=== PATIENT | female | born 1965 | race Caucasian/White ===

== ENCOUNTER → 2022-09-09 | Outpatient (CLI) | payer BC ==
--- NOTE | 2022-09-09 14:54 | CT ---
EXAMINATION TYPE: CT left knee - [facility] Protocol DATE OF EXAM: 09/09/2022 COMPARISON: None HISTORY: LT knee Gorge protocol CT DLP: 2169 mGycm Axial , sagittal and coronal images are obtained. Findings: There is bilateral moderate hip arthropathy. Mild to moderate concentric narrowing of the hip joint. There is near-complete loss of joint space involving the medial compartment of the left knee. There i s moderate to severe hypertrophic change and narrowing of the patellofemoral joint. No erosive change s. Ankle mortise is symmetric. IMPRESSION: 1. Severe osteoarthritis left knee.
== END | disposition home or self-care (01) ==
LOC: RADCTMAIN 13:21
PROVIDERS: ATTEND Orthopaedic Surgery
DX: M17.12 Unilateral primary osteoarthritis, left knee (principal); Z68.41 Body mass index [BMI] 40.0-44.9, adult

== ENCOUNTER → 2022-09-25 | Outpatient (CLI) | payer OTHER ==
--- NOTE | 2022-09-26 07:43 | CT ---
EXAMINATION TYPE: CT left knee - [facility] Protocol CT DLP: 1945 mGycm, Automated exposure control for dose reduction was used. DATE OF EXAM: 09/25/2022 4:13 PM COMPARISON: CT left knee 09/09/2022 CLINICAL INDICATION:Female, 57 years old with history of M25.562 PAIN IN LEFT KNEE; PH, Pre-surgical planning for left knee. TECHNIQUE: Axial images were obtained of the pelvis, both hips, left knee, and both ankles without th e use of IV contrast. Additional coronal and sagittal reformatted images and soft tissue and bone wi ndow were obtained for review. [facility] protocol. FINDINGS: There is bilateral mild hip arthropathy. Mild concentric narrowing of the hip joint. Without signific ant spurring. There is near-complete loss of joint space involving the medial compartment of the left knee. There i s moderate to severe hypertrophic change and narrowing of the patellofemoral joint. No erosive change s. Trace suprapatellar joint effusion. Partial visualization of arthritic changes of the right knee. Ankle mortise is symmetric. Right plantar calcaneal spur. Distal colonic diverticulosis without evidence for acute diverticulitis. Post hysterectomy changes. IMPRESSION: Severe osteoarthritis left knee redemonstrated.
== END | disposition home or self-care (01) ==
LOC: RADCTMAIN 15:26
PROVIDERS: ATTEND Orthopaedic Surgery
DX: Z01.818 Encounter for other preprocedural examination (principal); M17.12 Unilateral primary osteoarthritis, left knee

== ENCOUNTER → 2022-09-25 | Outpatient (CLI) | payer BC ==
[2022-09-25 17:06] LABS: Partial Thromboplastin Time 25.3 sec (22.0-30.0); Prothrombin Time 10.4 sec (9.0-12.0)
[2022-09-25 19:49] LABS: HCT 37.5 % (37.2-46.3); HGB 12.4 g/dL (12.0-15.0); MCH 29.5 pg (27.0-32.0); MCHC 33.1 g/dL (32.0-37.0); MCV 89.3 fL (80.0-97.0); Mean Platelet Volume 10.6 fL (9.5-12.2); NRBC Per 100 WBC 0 /100 WBCS (0.0-0.0); Platelet Count 187 X 10*3/uL (140-440); RDW 13.1 % (11.5-14.5); WBC 7.21 X 10*3/uL (4.50-10.00)
[2022-09-25 20:57] LABS: African American GFR (CKD) 82.8 (60.0-200.0); Albumin 4.2 g/dL (3.8-4.9); Albumin/Globulin Ratio 1.68 (1.60-3.17); Anion Gap 10.6 mmol/L (10.00-18.00); BUN/Creat Ratio 31.44 Ratio (12.00-20.00); Blood Urea Nitrogen 28.3 mg/dL (9.0-27.0); Calcium 9.5 mg/dL (8.7-10.3); Carbon Dioxide 30.4 mmol/L (20.0-27.5); Globulin 2.5 g/dL (1.6-3.3); Non-African American GFR(CKD) 71.5 (60.0-200.0); Potassium 3.6 mmol/L (3.5-5.5); Total Bilirubin 0.4 mg/dL (0.30-1.20); Total Protein 6.7 g/dL (6.2-8.2)
== END | disposition home or self-care (01) ==
LOC: LABWHC1 16:11
PROVIDERS: ATTEND Orthopaedic Surgery
DX: Z01.812 Encounter for preprocedural laboratory examination (principal); M17.12 Unilateral primary osteoarthritis, left knee
CPT/HCPCS: 36415; 80053; 85027; 85610; 85730

== ENCOUNTER 2022-10-11 08:43 | Day surgery (SDC) | payer BC ==
[~2022-10-11 08:43] MED LIST: ACETAMINOPHEN TAB 500 MG TAB PO PRN; DEXAMETHASONE SOD PHOSPHATE 10 MG/ML 1 ML VIAL IV PRN; DOCUSATE 100 MG CAP PO PRN; FAMOTIDINE 20 MG/2 ML VIAL IVP PRN; KETOROLAC 15 MG/ML 1 ML VIAL IVP PRN; ONDANSETRON 4 MG/2 ML VIAL IVP PRN; TRANEXAMIC ACID IN NACL,ISO-OS 1,000 MG in SALINE 1 100ML.BAG IV PRN; TRANEXAMIC ACID IN NACL,ISO-OS 1,000 MG in SALINE 1 100ML.BAG IVPB PRN; oxyCODONE ER 10 MG TAB.ER.12H PO PRN
[2022-10-11] MEDS ORDERED: LACTATED RINGERS 1,000 ML IV ONE (09:29)
[2022-10-11] MEDS ORDERED: DEXAMETHASONE SOD PHOSPHATE 4 MG/ML 1 ML VIAL IVP ONE (09:51)
[2022-10-11] MEDS ORDERED: fentaNYL (PF) 50 MCG/ML 2 ML AMP IVP ONE (10:03)
[2022-10-11] MEDS ORDERED: MIDAZOLAM 2 MG/2 ML VIAL IVP ONE (10:03)
--- NOTE | 2022-10-11 10:43 | P.ANPRN ---
Procedure Note - Anesthesia - Nerve Block Performed Left Adductor Canal Single Time Out Performed: Yes (1002) Date of Procedure: 10/11/22 Procedure Start Time: 10:03 Procedure Stop Time: 10:07 Location of Patient: PreOp Indication: Acute Post-Operative Pain, Requested by Surgeon Specifically requested for management of pain by DrNader: Naeem Bowles Sedation Type: Sedate with meaningful contact maintained Preparation: Sterile Prep Position: Supine Catheter: None Needle Types: Pajunk Needle Gauge: 21 Ultrasound used to visualize needle placement: Yes Ultrasound used to observe medication spread: Yes Injectate: 0.5% Ropivacaine (see comment for volume) (20cc) Blood Aspirated: No Pain Paresthesia on Injection Noted: No Resistance on Injection: Normal Image Stored and Saved: Yes Events: Uneventful and Well Tolerated
--- NOTE | 2022-10-11 10:43 | P.ANPRN ---
Procedure Note - Anesthesia - Nerve Block Performed Left iPack Single Time Out Performed: Yes (1002) Date of Procedure: 10/11/22 Procedure Start Time: 10:09 Procedure Stop Time: 10:12 Location of Patient: PreOp Indication: Acute Post-Operative Pain, Requested by Surgeon Specifically requested for management of pain by DrNader: Naeem Bowles Sedation Type: Sedate with meaningful contact maintained Preparation: Sterile Prep Position: Supine Catheter: None Needle Types: Pajunk Needle Gauge: 21 Ultrasound used to visualize needle placement: Yes Ultrasound used to observe medication spread: Yes Injectate: 0.5% Ropivacaine (see comment for volume) (20cc) Blood Aspirated: No Pain Paresthesia on Injection Noted: No Resistance on Injection: Normal Image Stored and Saved: Yes Events: Uneventful and Well Tolerated
[2022-10-11] MEDS: ROPIVACAINE/EPI/CLONIDINE/KET 50 ML SYRINGE MISCELLANE PRN ×2 (10:50→12:34)
[2022-10-11] MEDS ORDERED: PROPOFOL 10 MG/ML 20 ML VIAL IV ONE (10:53)
[2022-10-11] MEDS ORDERED: ePHEDrine 50 MG/ML 1 ML VIAL ONE (10:53)
[2022-10-11] MEDS ORDERED: ROPIVACAINE 5 MG/ML 30 ML VIAL ONE (10:53)
[2022-10-11] MEDS ORDERED: KETAMINE 10 MG/ML 20 ML VIAL ONE (10:53)
[2022-10-11] MEDS ORDERED: MIDAZOLAM 2 MG/2 ML VIAL ONE (10:53)
[2022-10-11] MEDS ORDERED: SUCCINYLCHOLINE CHLORIDE 200 MG/10 ML VIAL IV ONE (10:53)
[2022-10-11] MEDS ORDERED: LIDOCAINE 2% INJ 20 MG/ML (2 ML VIAL) ONE (10:53)
[2022-10-11] MEDS ORDERED: TRANEXAMIC ACID IN NACL,ISO-OS 1,000 MG/100 ML BAG ONE (10:53)
[2022-10-11] MEDS ORDERED: fentaNYL (PF) 50 MCG/ML 2 ML AMP ONE (10:53)
[2022-10-11] MEDS ORDERED: HYDROcodone/APAP 5-325MG 1 EACH TAB PO PRN (13:28)
[2022-10-11] MEDS ORDERED: ONDANSETRON 4 MG/2 ML VIAL IVP PRN (13:28)
[2022-10-11] MEDS ORDERED: hydrOXYzine pamoate 25 MG CAP PO PRN (13:28)
[2022-10-11] MEDS ORDERED: HYDROmorphone 1 MG/ML 1 ML SYRINGE IVP PRN (13:28)
[2022-10-11] MEDS ORDERED: HYDROmorphone 0.5 MG/0.5 ML SYRINGE IVP PRN ×2 (13:28)
[2022-10-11] MEDS ORDERED: NALOXONE 0.4 MG/ML 1 ML VIAL IV PRN (13:28)
--- NOTE | 2022-10-11 13:30 | P.OP ---
Date of Procedure: 10/11/22 Preoperative Diagnosis: 1. Severe left knee asked her arthritis 2. BMI 43 3. Coronary artery disease status post stents Postoperative Diagnosis: Same Procedure(s) Performed: Left total knee arthroplasty Implants: 1. [place]brook Triathlon CR Femur Size #3 2. [place] [employer] Muse Tibial Base Size #4 3. [place] Triathlon CS poly Size #9 4. [place] Triathlon all poly patella, Size #29 Anesthesia: BERNADINE, regional Surgeon: Naeem Bowles Broadcast Checker #1: Carl Mckeon Estimated Blood Loss (ml): 100 IV fluids (ml): 1,000 Pathology: none sent Condition: stable Disposition: PACU Indications for Procedure: I met with the patient preoperatively in the office setting and discussed treatment of their symptomatic knee arthritis. They failed a long course of nonsurgical treatment and elected to proceed with an elective total knee replacement. I discussed the potential risks and complications at length and gave them ample time to ask questions. Risks discussed included: risks from anesthesia, superficial site surgical infection, acute and/or chronic periprosthetic joint infection, delayed wound healing, drainage, wound necrosis, instability, stiffness, stiffness requiring manipulation and/or revision surgery, damage to local blood vessels or nerves, aseptic loosening of the implants, extensor mechanism issues including disruption, patellar maltracking, avascular necrosis etc., continued or worsened knee pain, generalized dissatisfaction with surgical outcome, need for revision surgery, an inability to regain preinjury level of function, DVT, PE, other medical complications, and possibly loss of life or limb. The patient voiced their understanding that while these are the most common complications other less common complications are possible. They provided both their verbal and written consent to go forward with surgery. We also discussed the patient's BMI of 43 and her history of heart disease. She understands that she is at an elevated risk of having a complication part icularly infection and delayed wound healing due to her elevated BMI. She voiced her understanding of this. Description of Procedure: The patient was identified in preoperative holding and the correct operative extremity was verified and marked with a marker. I reviewed the consent form with the patient at length. All of their questions were answered. The patient was given a block by anesthesia. They were then brought back to the operating room. They were transferred onto the operating room table where a general anesthetic, preoperative antibiotics, and tranexamic acid were administered by anesthesia. A tourniquet was applied to the proximal aspect of the operative extremity. The contralateral extremity was padded under the heel and secured to the operating room table with a nonsterile blue towel and tape. The ipsilateral arm was carefully draped across the patient's chest and secured with a pillow and foam. A post was applied over the lateral aspect of the ipsilateral thigh and a bolster was placed under the ipsilateral foot. I verified that the operative extremity was stable and the knee was flexed to 90. The operative extremity was then placed in a leg izquierdo, nonsterile drapes were applied, and the extremity was prepped and draped sterilely in the standard sterile fashion. Prior to starting surgery timeout was performed identifying the correct patient, operative extremity, and procedure. The leg was then elevated, exsanguinated with an Esmarch bandage, and the tourniquet was inflated. An anterior midline incision was made sharply with a scalpel. Once I had dissected deep to the superficial fascial layer medial and lateral flaps were elevated. A medial parapatellar arthrotomy was created. Upon opening the knee joint there were diffuse arthritic changes in all 3 compartments. The anterior horn of the medial meniscus were sharply released and a medial release was performed around the posterior medial corner of the knee to facilitate retractor placement. The fat pad was excised with electrocautery. The patella was found to be severely arthritic and a provisional cut was made with a sagittal saw to facilitate mobilization of the extensor mechanism during the procedure. Remnants of the ACL and PCL were then excised from the notch. 4 mm pins were then placed within the incision in the medial distal femur and proximal tibia. Arrays were applied to the pins and I verified they were completely tightened. The knee was then registered with the Nutmeg robot and manipulations in implant position were made to balance the knee and opitmize implant position. Using the Nutmeg robotic saw all cuts were made in accordance with our plan. After all bony fragments had been removed the cuts were verified with the planar probe. The tibia was then subluxed forward and sized. The knee was brought into flexion and a lamina computer operations supervisor was placed to allow removal of the meniscal remnants both medially and laterally as well as posterior osteophytes. Local anesthetic was then infiltrated around the joint capsule. Trial implants were then placed within the knee. Range of motion and collateral ligament tension was then evaluated. Adjustments in implant size and position were then made accordingly. Once the knee was felt to be appropriately balanced the Gorge pins were removed. The patella was then recut, sized, and punched. A trial patellar button was then placed. With the trial components in place, the patella tracked midline. The femur was then drilled and the trial component removed. The trial tibial component was then appropriately rotated, pinned, and prepared for the keel. All trial components were then removed from the knee. The knee was thoroughly irrigated with pulsatile lavage. Cement was prepared via vacuum mixing in a bowl on the back table. I then hand pressurized cement into the femur and tibia and placed the implants beginning with the tibial base tray and poly liner, femoral component, and finally the patellar button. All extruded cement was removed including from the pin sites. Once the cement had hardened the knee was evaluated one final time with the final polyethylene liner in place. The knee had full extension and flexion and felt stable to varus and valgus stress throughout the arc of motion. The tourniquet was released and with the tourniquet down the patella tracked midline. All bleeders were controlled with electrocautery. The knee was then soaked for 3 minutes with a dilute Betadine soak. The knee was thoroughly irrigated using 3 L of sterile saline and pulsatile lavage. A deep drain was placed. The extensor mechanism was then reapproximated using pop off Vicryl sutures followed by a running barbed suture. The knee was then closed in layers with a 0 strata fix for the deep fascial layer, 2-0 strata fix for the superficial subcutaneous layer and Monocryl and Steri-Strips for the skin. A sterile dressing and drain sponge were applied. I verified that all instrument, sponge, and sharp counts were correct. The patient was then transferred off the operating room table, extubated, and brought to recovery having tolerated the procedure well. Carl Mckeon PA-C was required as a skilled primary teaching assistant due to the complexity of the procedure for patient positioning, draping, retraction, placement of hardware, and closure of wound. PLAN: The patient can weight-bear as tolerated on the operative extremity. DVT prophylaxis with aspirin 81 mg twice a day based on preoperative risk stratification. Follow-up in the office in 2 weeks for wound check and x-rays of the knee including an AP and lateral.
--- NOTE | 2022-10-11 13:57 | XR ---
EXAMINATION TYPE: XR knee limited LT DATE OF EXAM: 10/11/2022 COMPARISON: NONE TECHNIQUE: Two views submitted HISTORY: Post op FINDINGS: There is a prosthetic knee in near anatomic alignment. There is soft tissue edema and emphysema. Man rgical drain noted. IMPRESSION: 1. Postoperative change. Appears in near-anatomic alignment
[2022-10-11] MEDS: LACTATED RINGERS 1,000 ML IV SCH (14:49)
[2022-10-11] MEDS ORDERED: ACETAMINOPHEN TAB 325 MG TAB PO PRN (16:25)
--- NOTE | 2022-10-11 16:29 | P.CONS ---
History of Present Illness - Reason for Consult Consult date: 10/11/22 - Chief Complaint medical management - History of Present Illness 57 year old woman with CAD, HTN, HLD, OA presented for elective TKA of left knee. Medicine consulted for medical management. Patient has no complaints at this time, pain is well controlled. Denies f/c, n/v, cp, palps, abd pain, c/d, dysuria, dyschezia, n/w of extremities Upon my evaluation, patient is afebrile, 143/70, heart rate 89, 94% on 2 L nasal cannula. no labs to review. No imaging to review. All Systems reviewed and pertinent positives and negatives noted in HPI, all other symptoms are negative Gen: in no apparent distress, resting comfortably in bed Eyes: PERRL, no scleral injection or icterus HENT: normocephalic, atraumatic, good hearing acuity, moist mucous membranes Neck: no tracheal deviation, full range of motion Resp: good air exchange, breathing comfortably with no accessory muscle use, no tactile fremitus CVS: good distal perfusion x 4, no pitting edema GI: soft, NTTP, ND, no hepatosplenomegaly : no suprapubic tenderness, no CVAT, awan catheter not present MSK: no clubbing, no cyanosis, no noted contractures of extremities Skin: no noted rashes, petechiae; temperature of skin is appropriate Neuro: moving all extremities without signs of weakness, CN II-XII intact Psych: cooperative, euthymic mood, insight and judgment intact Assessment: Hypertension Hyperlipidemia CAD Status post elective TKA of the left knee Plan: Vital signs reviewed and noted in the HPI Continue patient's metoprolol 50 mg by mouth twice a day, atorvastatin 40 mg at bedtime Continue patient's losartan 100 mg at bedtime Hold patient's home hydrochlorothiazide Past Medical History Past Medical History: Coronary Artery Disease (CAD), Hyperlipidemia, Hypertensio n, Osteoarthritis (OA), Skin Disorder Additional Past Medical History / Comment(s): left knee pain/ arthritis. keratosis History of Any Multi-Drug Resistant Organisms: None Reported Past Surgical History: Section, Heart Catheterization With Stent, Hysterectomy, Joint Replacement Additional Past Surgical History / Comment(s): X 4, Left knee replacement 10/11/2022 Past Anesthesia/Blood Transfusion Reactions: No Reported Reaction Date of Last Stent Placement:: Past Psychological History: No Psychological Hx Reported Smoking Status: Never smoker Past Alcohol Use History: Rare Past Drug Use History: None Reported - Past Family History Father Family Medical History: No Reported History Mother Family Medical History: No Reported History Medications and Allergies Home Medications Medication Instructions Recorded Confirmed Type Acetaminophen Tab [Tylenol] 975 mg PO Q6H PRN 10/10/22 10/11/22 History Aspirin 81 mg PO DAILY 10/10/22 10/11/22 History Atorvastatin Calcium 40 mg PO HS 10/10/22 10/11/22 History Losartan Potassium 100 mg PO HS 10/10/22 10/11/22 History Metoprolol Tartrate [Lopressor] 50 mg PO BID 10/10/22 10/11/22 History Unk Calcium Supplement 1 tab PO DAILY 10/10/22 10/11/22 History Unk Fish Oil 1 tab PO DAILY 10/10/22 10/11/22 History Unk Vitamin D 1 tab PO DAILY 10/10/22 10/11/22 History hydroCHLOROthiazide 25 mg PO HS 10/10/22 10/11/22 History Aspirin 81 mg PO BID 30 Days #60 tab 10/11/22 Rx Diclofenac Sodium [Voltaren] 75 mg PO BID 30 Days #60 tab 10/11/22 Rx Docusate [Colace] 100 mg PO BID #60 capsule 10/11/22 Rx HYDROcodone/APAP 5-325MG [Anderson 1 - 2 tab PO Q6HR PRN 7 Days #32 10/11/22 Rx 5-325] tab Omeprazole 40 mg PO DAILY 30 Days #30 cap 10/11/22 Rx Allergies Allergy/AdvReac Type Severity Reaction Status Date / Time No Known Allergies Allergy Verified 10/11/22 09:28 Physical Exam Osteopathic Statement: *. No significant issues noted on an osteopathic structural exam other than those noted in the History and Physical/Consult. Vitals: Vital Signs Temp Pulse Resp BP Pulse Ox 10/11/22 15:37 98 10/11/22 14:31 89 16 143/70 94 L 10/11/22 14:15 101 H 16 155/70 98 10/11/22 14:00 87 16 144/64 98 10/11/22 13:45 87 16 139/64 96 10/11/22 13:30 87 16 131/58 96 06/02/23 13:25 97.1 F L 108 H 16 140/72 96 10/11/22 10:18 50 L 16 147/96 95 10/11/22 09:25 97.1 F L 54 L 20 170/74 96 Intake and Output 10/11/22 10/11/22 10/11/22 06:59 14:59 22:59 Intake Total 1050 Output Total 75 Balance 975 Intake: IV 1050 Output: Estimated Blood Loss 75 Other: Weight 111 kg 111 kg
[2022-10-11] MEDS: HYDROcodone/APAP 5-325MG 1 EACH TAB PO PRN (18:31)
[2022-10-11] MEDS: ASPIRIN 81 MG PO SCH (20:23)
[2022-10-11] MEDS: METOPROLOL TARTRATE 50 MG TAB PO SCH (20:24)
[2022-10-11] MEDS ORDERED: SENNOSIDES-DOCUSATE SODIUM 1 EACH TAB PO SCH (21:00)
[2022-10-11] MEDS ORDERED: ATORVASTATIN 40 MG TAB PO SCH (21:00)
[2022-10-11] MEDS ORDERED: LOSARTAN 50 MG TAB PO SCH (21:00)
[2022-10-12] MEDS: LACTATED RINGERS 1,000 ML IV SCH ×2 (01:18→10:20)
[2022-10-12] MEDS: HYDROcodone/APAP 5-325MG 1 EACH TAB PO PRN ×3 (02:39→13:56)
[2022-10-12 04:53] LABS: Basophils % (A) 0 %; Eosinophils % (A) 0 %; HCT 34.3 % (34.0-46.0); HGB 11.4 gm/dL (11.4-16.0); Lymphocytes % (A) 9 %; MCH 29.9 pg (25.0-35.0); MCHC 33.2 g/dL (31.0-37.0); MCV 90.2 fL (80.0-100.0); Mean Platelet Volume 7.7; Monocytes # (A) 0.6 k/uL (0-1.0); Monocytes % (A) 5 %; Neutrophils # (A) 9.3 k/uL (1.3-7.7); Neutrophils % (A) 84 %; Platelet Count 181 k/uL (150-450); RDW 13.3 % (11.5-15.5); WBC 11.1 k/uL (3.8-10.6)
[2022-10-12] MEDS: METOPROLOL TARTRATE 50 MG TAB PO SCH (08:07)
[2022-10-12] MEDS: ASPIRIN 81 MG PO SCH (08:07)
[2022-10-12 08:25] VITALS: BP 107/70; PULSE 74; RESP 18; TEMP 98
--- NOTE | 2022-10-12 08:49 | P.PN ---
Subjective Progress Note Date: 10/12/22 Patient in the morning she has mild discomfort in her left knee but otherwise doing well. She denies chest pain or shortness of breath. Objective - Vital Signs Vital signs: Vital Signs Temp 98.0 F 10/12/22 07:18 Pulse 74 10/12/22 07:18 Resp 18 10/12/22 07:18 BP 107/70 10/12/22 07:18 Pulse Ox 95 10/12/22 07:18 FiO2 Intake & Output 10/11/22 10/12/22 10/12/22 18:59 06:59 18:59 Intake Total 1050 Output Total 475 Balance 575 Weight 111 kg Intake: IV 1050 Output: Urine 400 Estimated Blood Loss 75 Other: Voiding Method Toilet - Exam Patient is resting comfortably in her bed. She has no apparent distress. A focused exam the left leg was conducted. On inspection there is a clean- appearing dressing over her knee. Her drain site is intact with no drainage. Her Hemovac drain was discontinued. Moderate swelling throughout the knee and leg. Motor and sensory function are intact. - Labs CBC & Chem 7: 10/12/22 04:21 Labs: Abnormal Lab Results - Last 24 Hours (Table) 10/12/22 Range/Units 04:21 WBC 11.1 H (3.8-10.6) k/uL Neutrophils # 9.3 H (1.3-7.7) k/uL Assessment and Plan Assessment: Postoperative day #1 status post left total knee replacement Coronary artery disease BMI 43 Plan: 1. Weight-bear as tolerated left lower extremity, up with assistance 2. Physical therapy for gait training 3. 2 doses postoperative antibiotics 4. Discharge home later this morning when she passes therapy and her pain is controlled
--- NOTE | 2022-10-12 08:50 | P.DS ---
Providers Date of admission: 10/11/2022 Attending physician: Naeem Bowles Consults: 10/11/22 13:28 Consult Physician Routine Consulting Provider: Tenzin Black Consult Reason/Comments: medical management Do you want consulting provider notified?: Yes Primary care physician: Mikey Good Hospital Course: Patient is very pleasant. His healthy 57-year-old female who is admitted under my care yesterday for a left total knee replacement. Following an uncomplicated surgery she was transferred to the orthopedic floor. She did well postoperatively. She was transitioned from IV to oral pain medications. She worked with physical therapy and was ultimately discharged home. Plan - Discharge Summary Discharge Rx Participant: Yes New Discharge Prescriptions: New Aspirin 81 mg PO BID 30 Days #60 tab HYDROcodone/APAP 5-325MG [Havana 5-325] 1 - 2 tab PO Q6HR PRN 7 Days #32 tab PRN Reason: Pain Omeprazole 40 mg PO DAILY 30 Days #30 cap Diclofenac Sodium [Voltaren] 75 mg PO BID 30 Days #60 tab Docusate [Colace] 100 mg PO BID #60 capsule No Action Acetaminophen Tab [Tylenol] 975 mg PO Q6H PRN PRN Reason: Pain Aspirin 81 mg PO DAILY Unk Fish Oil 1 tab PO DAILY Unk Calcium Supplement 1 tab PO DAILY hydroCHLOROthiazide 25 mg PO HS Losartan Potassium 100 mg PO HS Atorvastatin Calcium 40 mg PO HS Metoprolol Tartrate [Lopressor] 50 mg PO BID Unk Vitamin D 1 tab PO DAILY Discharge Medication List Acetaminophen Tab [Tylenol] 975 mg PO Q6H PRN 10/10/22 [History] Aspirin 81 mg PO DAILY 10/10/22 [History] Atorvastatin Calcium 40 mg PO HS 10/10/22 [History] Losartan Potassium 100 mg PO HS 10/10/22 [History] Metoprolol Tartrate [Lopressor] 50 mg PO BID 10/10/22 [History] Unk Calcium Supplement 1 tab PO DAILY 10/10/22 [History] Unk Fish Oil 1 tab PO DAILY 10/10/22 [History] Unk Vitamin D 1 tab PO DAILY 10/10/22 [History] hydroCHLOROthiazide 25 mg PO HS 10/10/22 [History] Aspirin 81 mg PO BID 30 Days #60 tab 10/11/22 [Rx] Diclofenac Sodium [Voltaren] 75 mg PO BID 30 Days #60 tab 10/11/22 [Rx] Docusate [Colace] 100 mg PO BID #60 capsule 10/11/22 [Rx] HYDROcodone/APAP 5-325MG [Havana 5-325] 1 - 2 tab PO Q6HR PRN 7 Days #32 tab 10/11/22 [Rx] Omeprazole 40 mg PO DAILY 30 Days #30 cap 10/11/22 [Rx] Follow up Appointment(s)/Referral(s): Naeem Bowles MD [Medical Doctor] - 2 Weeks Activity/Diet/Wound Care/Special Instructions: Weight bear to tolerance on operative extremity with a walker. Keep operative dressing in place until follow-up in the office. Call the office if dressing becomes saturated or falls off. May shower over dressing. Take pain medications as needed. Take aspirin 81mg twice a day x 4 weeks for blood clot prevention. Follow-up in the office in two weeks at [facility]. Call the office with any questions or concerns, Discharge Disposition: HOME WITH HOME HEALTH SERVICES
--- NOTE | 2022-10-12 10:18 | P.PN ---
Subjective Progress Note Date: 10/12/22 No new complaints. Pt progressing well. Gen: in no apparent distress, resting comfortably in bed Eyes: PERRL, no scleral injection or icterus HENT: normocephalic, atraumatic, good hearing acuity, moist mucous membranes Neck: no tracheal deviation, full range of motion Resp: good air exchange, breathing comfortably with no accessory muscle use, no tactile fremitus CVS: good distal perfusion x 4, no pitting edema GI: soft, NTTP, ND, no hepatosplenomegaly : no suprapubic tenderness, no CVAT, awan catheter not present MSK: no clubbing, no cyanosis, no noted contractures of extremities Skin: no noted rashes, petechiae; temperature of skin is appropriate Neuro: moving all extremities without signs of weakness, CN II-XII intact Psych: cooperative, euthymic mood, insight and judgment intact Assessment: Hypertension Hyperlipidemia CAD Status post elective TKA of the left knee Plan: Vital signs reviewed Continue patient's metoprolol 50 mg by mouth twice a day, atorvastatin 40 mg at bedtime Continue patient's losartan 100 mg at bedtime Hold patient's home hydrochlorothiazide Objective - Vital Signs Vital signs: Vital Signs Temp 98.0 F 10/12/22 07:18 Pulse 74 10/12/22 07:18 Resp 18 10/12/22 07:18 BP 107/70 10/12/22 07:18 Pulse Ox 95 10/12/22 08:59 FiO2 Intake & Output 10/11/22 10/12/22 10/12/22 18:59 06:59 18:59 Intake Total 1050 Output Total 475 Balance 575 Weight 111 kg Intake: IV 1050 Output: Urine 400 Estimated Blood Loss 75 Other: Voiding Method Toilet - Labs CBC & Chem 7: 10/12/22 04:21 Labs: Abnormal Lab Results - Last 24 Hours (Table) 10/12/22 Range/Units 04:21 WBC 11.1 H (3.8-10.6) k/uL Neutrophils # 9.3 H (1.3-7.7) k/uL
== END 2022-10-12 14:34 | disposition home health service (06) ==
LOC: OR 08:43 → 4SSUR 13:25 → OR 10-12 14:34
PROVIDERS: ATTEND Orthopaedic Surgery
DX: M17.12 Unilateral primary osteoarthritis, left knee (principal); G89.18 Other acute postprocedural pain; I25.10 Atherosclerotic heart disease of native coronary artery without angina pectoris; I10 Essential (primary) hypertension; Z82.49 Family history of ischemic heart disease and other diseases of the circulatory system; Z86.59 Personal history of other mental and behavioral disorders; Z95.5 Presence of coronary angioplasty implant and graft; Z79.899 Other long term (current) drug therapy
CPT/HCPCS: 94760 ×2; 97162; 85025; 73560; 27447; 64447; 64999; J2250; J1100; J0690 ×2; J2405; J3010; J1885; J1170